=== PATIENT | male | born 1975 | race Caucasian/White ===

== ENCOUNTER → 2018-03-11 | Outpatient (CLI) | payer OTHER ==
--- NOTE | 2018-03-11 17:01 | Diagnostic Imaging Report ---
INDICATION: Right flank pain. Microhematuria. Renal calculi. COMPARISON: CT abdomen and pelvis from the same day. FINDINGS: Two supine radiographic views of the abdomen were obtained. Small calculi are seen projecting over the inferior pole of the right kidney. There is also a subtle 3 mm calculus projecting over the right sacral body which is felt to correspond to the distal ureteral calculus seen on the separately performed CT. No other unexpected extraosseous calcifications or radiopaque foreign bodies are seen. The small bowel loops are nondistended. There is no large collection of free intraperitoneal air. The bony structures show no acute abnormalities. IMPRESSION: 1. Nephrolithiasis and distal right ureteral calculus. 2. Nonobstructed small bowel gas pattern. Dictated by: Dictated on workstation # [id number]
--- NOTE | 2018-03-11 17:20 | Diagnostic Imaging Report ---
PROCEDURE: CT of the abdomen and pelvis without contrast. TECHNIQUE: Multiple contiguous axial images were obtained through the abdomen and pelvis without the use of intravenous contrast. INDICATION: Right flank pain. FINDINGS: There are no prior CT examinations available for comparison. The previous abdomen exam of 06/09/2011 failed to show any sign of nephrolithiasis or urolithiasis. On this study, there is a 4.9 mm calculus within the distal right ureter. The calculus lies within the ureter just inferior to the level of the left sacroiliac joint. There is only mild dilatation of the ureter proximal to the obstructive calculus, and there does not appear to be any significant hydronephrosis of the right kidney. There are two small (3 mm or less) nonobstructive calculi in the inferior pole of the right kidney and a single 3.8 mm calculus in the mid portion of the right kidney. There is no evidence for nephrolithiasis or urolithiasis on the left. There is no sign of a solid renal mass either. The urinary bladder is grossly unremarkable. The prostate gland is not enlarged. There is no pelvic mass or free fluid collection noted. There is diverticulosis of the sigmoid colon, but there is no sign of acute diverticulitis. The appendix is not abnormally thickened, and there is no evidence for appendicitis. The liver, spleen, pancreas, adrenals, gallbladder, aorta, and inferior vena cava are unremarkable for an acute abnormality. The stomach is filled with particulate matter and consequently difficult to assess. The lung bases are clear. The bone windows show no evidence for a fracture or for a destructive lesion. IMPRESSION: 1. There is a 4.9 mm calculus in the distal right ureter just inferior to the level of the right sacroiliac joint. The calculus appears to be producing only mild obstruction of the right collecting system. 2. There are small nonobstructive calculi within the right kidney. There is no evidence for nephrolithiasis or urolithiasis on the left. 3. There is no acute abnormality of the abdomen or pelvis noted otherwise. Dictated by: Dictated on workstation # [id number]
== END ==
LOC: RAD 14:58
PROVIDERS: ATTEND Urology
DX: N20.2 Calculus of kidney with calculus of ureter (principal); R14.0 Abdominal distension (gaseous); Z87.442 Personal history of urinary calculi
CPT/HCPCS: 74018; 74176